=== PATIENT | male | born 1955 | race Caucasian/White ===

== ENCOUNTER → 2016-12-06 | Outpatient (CLI) | payer BC | LOC: RAD 07:51 | DX: M17.11 Unilateral primary osteoarthritis, right knee (principal) ==

== ENCOUNTER → 2019-05-22 | Outpatient (CLI) | payer BC | LOC: RAD 12:00 | DX: M48.07 Spinal stenosis, lumbosacral region (principal); M48.061 Spinal stenosis, lumbar region without neurogenic claudication; M51.36 Other intervertebral disc degeneration, lumbar region; M47.816 Spondylosis without myelopathy or radiculopathy, lumbar region; M43.16 Spondylolisthesis, lumbar region; M79.671 Pain in right foot ==

== ENCOUNTER 2020-03-19 11:04 | Emergency (ER) | payer BC ==
[~2020-03-19] VITALS: Ht 193 cm; Wt 121.7 kg
[2020-03-19 11:47] LABS: ALBUMIN 3.7 g/dL (3.4-4.8)
[2020-03-19 11:48] LABS: HEMATOCRIT 47.7 % (42.0-52.0); MEAN CELL VOLUME 79 fl (78-100); MEAN CORPUSCULAR HEMOGLOBIN 26 pg (27-31); MEAN CORPUSCULAR HGB CONC 34 g/dL (33-37); MEAN PLATELET VOLUME 10.9 fl (7.4-10.4); PLATELET COUNT 216 K/mm3 (130-400); POTASSIUM 3.6 mmol/L (3.5-5.1); RED BLOOD COUNT 6.06 M/mm3 (4.20-5.60); RED CELL DISTRIBUTION WIDTH 14.9 % (11.5-14.5); SODIUM 135 mmol/L (136-145); WHITE BLOOD COUNT 8.1 K/mm3 (4.8-10.8)
[2020-03-19 11:49] LABS: CALCIUM 8.6 mg/dL (8.3-10.5)
[2020-03-19 11:50] LABS: GLUCOSE 119 mg/dL (75-110)
[2020-03-19 11:51] LABS: CARBON DIOXIDE 24 mmol/L (23-31)
[2020-03-19 11:52] LABS: TOTAL BILIRUBIN 0.7 mg/dL (0.2-1.2)
[2020-03-19 11:55] LABS: AST-SGOT 44 U/L (5-34)
[2020-03-19 11:57] LABS: ALT/SGPT 65 U/L (0-55)
[2020-03-19 11:59] LABS: D-DIMER 0.78 mg/L FEU (0.15-0.50)
[2020-03-19 12:05] LABS: TROPONIN-I < 0.03 ng/mL (<0.030)
[2020-03-19 12:11] LABS: BAND 1 % (0-10); LYMPHOCYTE 5 % (20-51); MONOCYTE 5 % (3-10); NEUTROPHILS 89 % (42-75)
[2020-03-19 12:59] LABS: ERYTHROCYTE SEDIMENTATION RATE 23 mm/hr (0-20)
[2020-03-19 13:46] LABS: URINE APPEARANCE CLEAR; URINE COLOR YELLOW
[2020-03-19 13:47] LABS: URINE BILIRUBIN NEGATIVE (NEGATIVE); URINE BLOOD NEGATIVE (NEGATIVE); URINE GLUCOSE NEGATIVE (NEGATIVE); URINE KETONE NEGATIVE (NEGATIVE); URINE LEUKOCYTE ESTERASE NEGATIVE (NEGATIVE); URINE NITRATE NEGATIVE (NEGATIVE); URINE PROTEIN(semi-quant) 1+ mg/dL (NEGATIVE); URINE UROBILINOGEN NORMAL (NORMAL); URINE WBC 0-1 /hpf (0-3)
[2020-03-19 18:00] VITALS: BP 152/96
[2020-03-19] MEDS ORDERED: METOPROLOL SUCC25 M1 (18:30)
== END 2020-03-19 18:00 | disposition short-term general hospital (02) ==
LOC: ED 11:04
PROVIDERS: Nurse Practitioner; Physician Assistant
DX: U07.1 COVID-19 (principal); I48.20 Chronic atrial fibrillation, unspecified; I10 Essential (primary) hypertension; Z88.0 Allergy status to penicillin; Z87.891 Personal history of nicotine dependence; Z79.899 Other long term (current) drug therapy
CPT/HCPCS: J7030; Q9967

== ENCOUNTER 2020-04-30 17:30 | Emergency (ER) | payer BC ==
[~2020-04-30] VITALS: Ht 193 cm; Wt 120.9 kg
[~2020-04-30 17:30] MED LIST: METOPROLOL SUCC25 M1
[2020-04-30 18:26] LABS: EOS # 0.1 (0.04-0.40); EOS % 0.9 % (0.0-4.0); HEMATOCRIT 49.7 % (42.0-52.0); LYMPH# 1.2 (1.50-4.00); MEAN CELL VOLUME 82 fl (78-100); MEAN CORPUSCULAR HEMOGLOBIN 27 pg (27-31); MEAN CORPUSCULAR HGB CONC 32 g/dL (33-37); MEAN PLATELET VOLUME 9.9 fl (7.4-10.4); NEU # 7.4 (1.40-6.50); PLATELET COUNT 237 K/mm3 (130-400); RED BLOOD COUNT 6.03 M/mm3 (4.20-5.60); RED CELL DISTRIBUTION WIDTH 18.1 % (11.5-14.5); WHITE BLOOD COUNT 9.7 K/mm3 (4.8-10.8)
[2020-04-30 18:34] LABS: ALBUMIN 4.1 g/dL (3.4-4.8); SODIUM 141 mmol/L (136-145)
[2020-04-30 18:35] LABS: CALCIUM 9.1 mg/dL (8.3-10.5)
[2020-04-30 18:36] LABS: GLUCOSE 104 mg/dL (75-110); TOTAL PROTEIN 7.1 g/dL (6.2-8.1)
[2020-04-30 18:37] LABS: CARBON DIOXIDE 20 mmol/L (23-31)
[2020-04-30 18:38] LABS: TOTAL BILIRUBIN 0.4 mg/dL (0.2-1.2)
[2020-04-30 18:42] LABS: AST-SGOT 27 U/L (5-34)
[2020-04-30 18:43] LABS: ALT/SGPT 44 U/L (0-55)
[2020-04-30 18:50] LABS: TROPONIN-I < 0.03 ng/mL (<0.030)
[2020-04-30] MEDS ORDERED: TOPCARE ASPIRIN81 M1 PO (19:03)
[2020-04-30] MEDS ORDERED: CARVEDILOL12.5 MG PO (19:03)
[2020-04-30] MEDS ORDERED: AMLODIPINE BESYL5 MG PO (19:03)
[2020-04-30 21:58] VITALS: BP 139/94
== END 2020-04-30 21:58 | disposition short-term general hospital (02) ==
LOC: ED 17:30
PROVIDERS: Family Medicine
DX: I48.91 Unspecified atrial fibrillation (principal); I10 Essential (primary) hypertension; Z86.16 Personal history of COVID-19; Z79.82 Long term (current) use of aspirin; Z87.891 Personal history of nicotine dependence
CPT/HCPCS: J1650

== ENCOUNTER 2020-05-21 00:09 | Emergency (ER) | payer BC ==
[~2020-05-21 00:09] MED LIST changes: +AMLODIPINE BESYL5 MG PO; +CARVEDILOL12.5 MG PO; +TOPCARE ASPIRIN81 M1 PO
[2020-05-21] MEDS ORDERED: COREG 25MG25 MG/TAB PO (00:22)
[2020-05-21] MEDS ORDERED: FLECAINIDE ACET50 MG PO (00:23)
[2020-05-21] MEDS ORDERED: COZAAR100 MG PO (00:24)
[2020-05-21 00:57] LABS: HEMATOCRIT 46.9 % (42.0-52.0); HEMOGLOBIN 15.3 g/dL (13.5-18.0); MEAN CELL VOLUME 83 fl (78-100); MEAN CORPUSCULAR HEMOGLOBIN 27 pg (27-31); MEAN CORPUSCULAR HGB CONC 33 g/dL (33-37); MEAN PLATELET VOLUME 10.5 fl (7.4-10.4); PLATELET COUNT 207 K/mm3 (130-400); RED BLOOD COUNT 5.65 M/mm3 (4.20-5.60); RED CELL DISTRIBUTION WIDTH 16.8 % (11.5-14.5); WHITE BLOOD COUNT 8.2 K/mm3 (4.8-10.8)
[2020-05-21 01:06] LABS: ALBUMIN 3.9 g/dL (3.4-4.8); POTASSIUM 3.8 mmol/L (3.5-5.1)
[2020-05-21 01:07] LABS: CALCIUM 9.5 mg/dL (8.3-10.5)
[2020-05-21 01:08] LABS: TOTAL PROTEIN 6.6 g/dL (6.2-8.1)
[2020-05-21 01:10] LABS: LYMPHOCYTE 23 % (20-51); MONOCYTE 13 % (3-10); NEUTROPHILS 61 % (42-75); TOTAL BILIRUBIN 0.3 mg/dL (0.2-1.2)
[2020-05-21 01:11] LABS: OVALOCYTES 1+
[2020-05-21 01:34] LABS: URINE APPEARANCE CLEAR; URINE BILIRUBIN NEGATIVE (NEGATIVE); URINE BLOOD TRACE (NEGATIVE); URINE COLOR YELLOW; URINE GLUCOSE NEGATIVE (NEGATIVE); URINE KETONE NEGATIVE (NEGATIVE); URINE LEUKOCYTE ESTERASE NEGATIVE (NEGATIVE); URINE NITRATE NEGATIVE (NEGATIVE); URINE PROTEIN(semi-quant) TRACE mg/dL (NEGATIVE); URINE UROBILINOGEN NORMAL (NORMAL); URINE WBC 0-1 /hpf (0-3)
[2020-05-21 03:14] VITALS: BP 104/78
== END 2020-05-21 03:14 | disposition short-term general hospital (02) ==
LOC: ED 00:09
PROVIDERS: Nurse Practitioner Family
DX: I48.91 Unspecified atrial fibrillation (principal); I10 Essential (primary) hypertension; Z87.891 Personal history of nicotine dependence; Z86.16 Personal history of COVID-19; Z88.0 Allergy status to penicillin; Z88.8 Allergy status to other drugs, medicaments and biological substances; Z79.82 Long term (current) use of aspirin; Z79.899 Other long term (current) drug therapy
CPT/HCPCS: J7030

== ENCOUNTER → 2020-10-27 | Day surgery (SDC) | payer BC ==
[~2020-10-27] MED LIST changes: +COREG 25MG25 MG/TAB PO; +COZAAR100 MG PO; +FLECAINIDE ACET50 MG PO
== END | disposition home or self-care (01) ==
LOC: MSO 08:47
DX: H25.13 Age-related nuclear cataract, bilateral (principal); H04.121 Dry eye syndrome of right lacrimal gland; J45.909 Unspecified asthma, uncomplicated; I10 Essential (primary) hypertension; I48.91 Unspecified atrial fibrillation; Z79.899 Other long term (current) drug therapy; Z79.01 Long term (current) use of anticoagulants; Z79.82 Long term (current) use of aspirin; Z87.891 Personal history of nicotine dependence; Z86.16 Personal history of COVID-19
CPT/HCPCS: 00142; J0171; J2250; V2632

== ENCOUNTER → 2020-11-24 | Day surgery (SDC) | payer BC | LOC: MSO 07:25 | DX: H25.11 Age-related nuclear cataract, right eye (principal); J45.909 Unspecified asthma, uncomplicated; I48.91 Unspecified atrial fibrillation; I10 Essential (primary) hypertension; Z79.01 Long term (current) use of anticoagulants; Z79.899 Other long term (current) drug therapy; Z79.82 Long term (current) use of aspirin | CPT/HCPCS: 00142; J0171; J2250; V2632 ==